=== PATIENT | female | born 1975 | race Caucasian/White ===

== ENCOUNTER 2018-09-12 12:50 | Emergency (ER) | payer BC ==
[2018-09-12 13:34] VITALS: BMI 27.0
[2018-09-12 13:59] LABS: SQUAMOUS EPITHIAL 1 /hpf (0-5); URINE AMORPHOUS SEDIMENT RARE /ul (<OCC); URINE BILIRUBIN NEGATIVE (NEGATIVE); URINE BLOOD NEGATIVE (NEGATIVE); URINE CLARITY CLEAR (Clear); URINE COLOR STRAW (YELLOW); URINE GLUCOSE (UA) 50 mg/dL (NEGATIVE); URINE LEUKOCYTE ESTERASE MOD Leu/uL (Negative); URINE PROTEIN NEGATIVE (NEGATIVE); URINE UROBILINOGEN 0.2-1.0 mg/dL (0.2-1.0)
--- NOTE | 2018-09-12 14:50 | OBDCSUM ---
Datetime: 09/12/2018 14:49 Discharged to, Provider: Home Follow up at, Provider: Dr. Valdes Disch Instr Activity: Normal activity; May Shower Disch Instr Diet: Regular Discharge Diagnosis, Provider: Antepartum Bleeding Discharge Time: 09/12/2018 14:49 Follow up in weeks, Provider: 09/15/2018 Disch Activity Restrictions: No exercising; No lifting; No sexual activity; Nothing in vagina - Inte rcourse, tampons, douche
--- NOTE | 2018-09-12 14:51 | OBHP ---
Datetime: 09/12/2018 13:30 IP Adm Impression: , intrauterine IP Admit Plan: Observation/Evaluation; Discharge home Admit Comment, IP Provider: 43 y/o female at 31.1 wk GA based on LMP 02/05/19 presents to [facility] w/ c/o blood in urine and when wiping. She denies dysurea, urgency, frequency, nausea, fevers. She en dorses movements. No recent sex. OB: Dr. Valdes Pmhx: denies HomeRx: vitamins Allergies: Ampicillin SurgHx: Cataract correction and breast biopsy FamHx: Mom w/ DM; dad w/ heart disease SocialHx: denies toxic habits ROS: all systems reviewed and negative except per HPI PhysicalExam: Gen: sitting up in bed comfortably Heart: S1 S2 present, RRR Lungs: normal breathing effort, clear to auscultation bilaterally Abd: gravid, normal bowel sounds, soft, non-tender SVE shows closed cervix. Speculum exam showed yellowish curdy discharge and watery yellow discharg e present within the vault. Small amount of blood seen in the discharge Assessment and Plan 43 y/o female at 31.1 wk GA IUP w/ c/o vaginal bleeding and vaginal itching Speculum exam findings suggestive of vaginal yeast infection Patient advised to start Monistat 7, 1 hira per vagina, QHS x 7 days Will send U/A and Ucx Advised to follow up w/ OB. She has an appointment on 09/15/2018 Case discussed w/ attending, Dr. Moreland OB Hospitalist Addendum: Pt seen and examined by me. Agree w/ above. 43 yo G1 at 31+1 wks w/ sp otting w/ wiping and w/ urination since 6am, denies dysuria, denies ctxns, denies LOF, reports FM. P t c/o itching. Spec: yellow curdled d/c w/ watery d/c and a little blood noted in the d/c, cx closed / thick. FHT reactive. UA w/ LE. Urine cx pending. Pt likely has yeast infxn. Pt given rx Monist at 7. Pt discharged home w/ bleeding and PTL precautions. Pt told to retrun to [facility] if bleeding bec omes more of a flow, heavier. Pt has an appoint w/ Dr. Valdes on ., 09/15/2018. Pelvic Type - PN: Adequate Extremities - PN: Normal Abdomen - PN: Normal Back - PN: Not Done Breast - PN: Not Done Lungs - PN: Normal Heart - PN: Normal Thyroid - PN: Not Done Neurologic - PN: Not Done HEENT - PN: Not Done General - PN: Normal FHR - Baseline A Provider: 150 Contraction Comments Provider: one contraction Comments, ACOG Physical Exam: Gen: sitting up in bed comfortably Heart: S1 S2 present, RRR Lungs: normal breathing effort, clear to auscultation bilaterally Abd: gravid, normal bowel sounds, soft, non-tender SVE shows closed cervix. Speculum exam showed yellowish curdy discharge and watery yellow discharg e present within the vault. Small amount of blood seen in the discharge Gestation - Est Wks by US: 31.1 EGA AdmitDate IP: 31.1 Vital Signs Provider: Reviewed; Within Normal Limits IP Chief Complaint: Vaginal bleeding NICHD Variability Prov Fetus A: Moderate 6-25bpm NICHD Accel Fetus A IP Provider: [id number] FHR Category Provider Fetus A: Category I NICHD Decel Fetus A IP Provider: None Dilatation, Provider: closed Genitourinary Exam: Abnormal DTRs - PN: Not Done
[2018-09-12 20:23] VITALS: BP 119/64; PULSE 89; TEMP 98.1
== END 2018-09-12 15:00 | disposition home or self-care (01) ==
LOC: H.EROB2 12:50
DX: N93.9 Abnormal uterine and vaginal bleeding, unspecified (principal); O23.593 Infection of other part of genital tract in pregnancy, third trimester; Z3A.31 31 weeks gestation of pregnancy